=== PATIENT | female | born 1960 | race American Indian/Alaskan Native ===

== ENCOUNTER 2016-05-18 10:05 | Outpatient (CLI) | payer BC ==
--- NOTE | 2016-05-18 12:53 | XRay Report ---
CHEST 2 VIEWS INDICATION: Hemoptysis. COMPARISON: None similar. FINDINGS: PA and lateral chest radiographs demonstrate normal cardiomediastinal silhouette. Clear lungs. Intact bones. CONCLUSION: No acute disease in the chest. Thank you for the opportunity to participate in this patient's care.
== END 2016-05-18 10:06 | disposition home or self-care (01) ==
LOC: SPVIMAG 10:05
PROVIDERS: ATTEND Nurse Practitioner
DX: R04.2 Hemoptysis (principal)
CPT/HCPCS: 71020

== ENCOUNTER 2018-12-11 20:51 | Emergency (ER) | payer SELFPAY ==
--- NOTE | 2018-12-11 21:33 | Emergency Department Report ---
ED Fall HPI - General Chief Complaint: Multiple Trauma Stated Complaint: FACE AND KNEE PAIN Time Seen by Provider: 12/11/18 21:26 Source: patient Mode of arrival: Ambulatory - History of Present Illness Initial Comments: Patient is 58 years old female with no significant past medical history. Patient presented to the ER for evaluation after she sustained a fall. Patient stated that she was going uphill to her car when she tripped and fell on her face. Patient stated that she landed on her mouth and chin. Patient is complaining of upper teeth pain, headache, neck pain, right hand pain and left knee pain. Patient also sustained an abrasion to the right knee. Patient denied any symptoms prior to the fall. MD Complaint: fall -: This evening Fall From: standing When Fall Occurred: just prior to arrival Fall Witnessed: no Place Fall Occurred: street Loss of Consciousness: none Prolonged Down Time?: no Symptoms Prior to Fall: none Location: head, face Location - Extremities: Left: Knee, Right: Hand Severity: moderate Severity scale (0 -10): 4 Quality: sharp Context: tripped/slipped - Related Data Allergies Allergy/AdvReac Type Severity Reaction Status Date / Time No Known Allergies Allergy Verified 12/11/18 21:37 ED Review of Systems ROS: Stated complaint: FACE AND KNEE PAIN Other details as noted in HPI Comment: All other systems reviewed and negative Constitutional: denies: chills, fever Respiratory: denies: cough, shortness of breath, SOB with exertion Cardiovascular: denies: chest pain, palpitations Gastrointestinal: denies: abdominal pain, nausea, vomiting, diarrhea, constipation, hematemesis, melena, hematochezia Musculoskeletal: denies: back pain Neurological: denies: headache, weakness, numbness, paresthesias, confusion, abnormal gait, vertigo ED Past Medical Hx - Past Medical History Previous Medical History?: No - Surgical History Past Surgical History?: No - Social History Smoking Status: Never Smoker ED Physical Exam - General Limitations: No Limitations General appearance: alert, in no apparent distress, anxious - Head Head exam: Present: other (right upper incisor with partial avulsion, no loose teeth identified.) - Eye Eye exam: Present: normal appearance, PERRL - ENT ENT exam: Present: normal exam, normal orophraynx, mucous membranes moist - Neck Neck exam: Present: normal inspection, full ROM. Absent: tenderness, meningismus, lymphadenopathy, thyromegaly - Respiratory Respiratory exam: Present: normal lung sounds bilaterally - Cardiovascular Cardiovascular Exam: Present: regular rate, normal rhythm, normal heart sounds - GI/Abdominal GI/Abdominal exam: Present: soft, normal bowel sounds. Absent: distended, tenderness, guarding, rebound, rigid, organomegaly, mass, bruit, pulsatile mass, hernia - Extremities Exam Extremities exam: Present: normal inspection, full ROM, normal capillary refill. Absent: tenderness, pedal edema, joint swelling, calf tenderness - Back Exam Back exam: Present: normal inspection, full ROM. Absent: CVA tenderness (R), CVA tenderness (L), muscle spasm, paraspinal tenderness, vertebral tenderness - Neurological Exam Neurological exam: Present: alert, oriented X3, CN II-XII intact, normal gait, reflexes normal - Psychiatric Psychiatric exam: Present: normal mood - Skin Skin exam: Present: warm, abrasion ED Course Vital Signs 12/11/18 12/11/18 21:24 21:45 Temperature 99.7 F H Pulse Rate 90 103 H Respiratory 18 18 Rate Blood Pressure 131/75 Blood Pressure 141/80 [Left] O2 Sat by Pulse 98 98 Oximetry ED Medical Decision Making - Radiology Data Radiology results: report reviewed - Medical Decision Making Patient is 58 years old female with no significant past medical history. Patient presented to the ER for evaluation after she sustained a fall. Patient stated that she was going uphill to her car when she tripped and fell on her face. Patient stated that she landed on her mouth and chin. Patient is complaining of upper teeth pain, headache, neck pain, right hand pain and left knee pain. Patient also sustained an abrasion to the right knee. Patient den ied any symptoms prior to the fall. Patient remained stable in the ER. CT bran, CT cervical spine, CT facial is negative for acute finding X-ray of the right hand and left knee is negative for acute finding. Condition received morphine for pain and stated that she is feeling much better. Patient advised to follow-up with her primary care physician in the next 2-3 days. Patient also advised to follow-up with her dentist in the next 2-3 days. Patient advised to attend to the ER if symptoms are not improved. Critical care attestation.: If time is entered above; I have spent that time in minutes in the direct care of this critically ill patient, excluding procedure time. ED Disposition Clinical Impression: Fall, Head injury, Dental injury, Knee contusion Disposition: TO HOME OR SELFCARE Is pt being admited?: No Condition: Stable Instructions: Minor Head Injury (ED), Acute dental trauma (ED) Referrals: PRIMARY CARE, [Referring] - 3-5 Days
[2018-12-11] MEDS ORDERED: MORPHINE ONE (21:37)
[2018-12-11] MEDS ORDERED: ZOFRAN ONE (21:37)
[2018-12-11] MEDS ORDERED: ZOFRAN IV ONE (21:49)
[2018-12-11] MEDS ORDERED: MORPHINE IM ONE (21:49)
[2018-12-11 21:50] VITALS: BP 141/80
--- NOTE | 2018-12-11 22:53 | XRay Report ---
LEFT KNEE 2 VIEWS INDICATION / CLINICAL INFORMATION: knee injury COMPARISON: None available. FINDINGS: BONES / JOINT(S): No acute fracture or subluxation. No significant arthritis. SOFT TISSUES: No significant abnormality. ADDITIONAL FINDINGS: None. Signer Name: Jesse Vila MD Signed: 12/11/2018 10:49 PM Workstation Name: [id number]
--- NOTE | 2018-12-11 22:54 | XRay Report ---
RIGHT HAND 2 VIEWS INDICATION / CLINICAL INFORMATION: hand injury COMPARISON: None available. FINDINGS: BONES / JOINT(S): No acute fracture or subluxation. There is degenerative change in the index finge r DIP joint. SOFT TISSUES: No significant abnormality. ADDITIONAL FINDINGS: None. Signer Name: Jesse Vila MD Signed: 12/11/2018 10:50 PM Workstation Name: [id number]
--- NOTE | 2018-12-11 23:17 | Cat Scan Report ---
CT HEAD WITHOUT CONTRAST INDICATION: Fall, injury, facial trauma TECHNIQUE: Axial slices were obtained through the head. Coronal and sagittal reformatted images were obtained. COMPARISON: None available. FINDINGS: There is no intracranial hemorrhage or extra-axial fluid collection. Ventricles, basilar cisterns, an d sulci appear within normal limits for age. There is no mass lesion or midline shift. No acute danae torial infarct is identified. Bone windows demonstrate no acute osseous abnormality. Paranasal sinuses and mastoid air cells appear clear. TECHNIQUE: All CT scans at this facility use dose modulation, iterative reconstruction, automated ex posure control, weight based dosing, when appropriate, to reduce radiation dose to as low as reasonab ly achievable. IMPRESSION: 1. No acute intracranial abnormality. Signer Name: Jesse Vila MD Signed: 12/11/2018 11:13 PM Workstation Name: [id number]
--- NOTE | 2018-12-11 23:46 | Cat Scan Report ---
CT cervical spine wo con INDICATION: Fall with neck injury TECHNIQUE: All CT scans at this location are performed using the following dose modulation technique: Automated exposure control. Helical slices were obtained through the cervical spine. Coronal and sagittal refor matted images are obtained. COMPARISON: None available. FINDINGS: Prevertebral soft tissues are unremarkable. There is discogenic degenerative change at C5-6 and C6-7 with anterior and posterior osteophytes. No fracture or luxation is seen. There is facet degenerative change. IMPRESSION: 1. No fracture or subluxation is seen. Degenerative changes are noted. Signer Name: Jesse Vila MD Signed: 12/11/2018 11:42 PM Workstation Name: [id number]
--- NOTE | 2018-12-11 23:51 | Cat Scan Report ---
CT facial bones wo con INDICATION: Fall with facial trauma. TECHNIQUE: All CT scans at this location are performed using the following dose modulation technique: Automated exposure control. Helical slices were obtained through the facial bones. Coronal and sagittal reforma tted images were obtained. COMPARISON: None available. FINDINGS: Paranasal sinuses are normally aerated. Air-fluid levels are seen. No fractures are seen. No focal ly tic or sclerotic lesions are seen. IMPRESSION: 1. No fracture is seen. Signer Name: Jesse Vila MD Signed: 12/11/2018 11:47 PM Workstation Name: [id number]
== END 2018-12-12 00:43 | disposition home or self-care (01) ==
LOC: ED 20:51
DX: S80.02XA Contusion of left knee, initial encounter (principal); S09.90XA Unspecified injury of head, initial encounter; S09.93XA Unspecified injury of face, initial encounter; W01.0XXA Fall on same level from slipping, tripping and stumbling without subsequent striking against object, initial encounter; Y93.89 Activity, other specified; Y92.89 Other specified places as the place of occurrence of the external cause; Y99.8 Other external cause status
CPT/HCPCS: 70450; 70486; 72125; 73120; 73562; J2270; J2405; 96372; 96374